=== PATIENT | female | born 1955 | race Caucasian/White ===

== ENCOUNTER 2024-07-11 01:42 | Emergency (ER) | payer MEDICAID, OTHER ==
[~2024-07-11] VITALS: Ht 154.9 cm; Wt 73.0 kg
[2024-07-11 02:12] VITALS: O2SAT 100
[2024-07-11 03:45] LABS: BASOPHILS % 0.5 % (0.0-2.0); EOSINOPHILS % 0.6 % (0.0-5.0); HEMATOCRIT. 40.4 % (36.0-48.0); HEMOGLOBIN. 13.9 g/dL (12.0-16.0); LYMPHOCYTES % 9.6 % (20.0-50.0); MEAN CORPUSCULAR HGB CONC 34.5 g/dL (31.0-37.0); MEAN CORPUSCULAR VOLUME 86.9 fL (81.0-99.0); MEAN PLATELET VOLUME 8.3 fl (7.4-10.4); MONOCYTES % 5.9 % (2.0-8.0); NEUTROPHILS % 83.4 % (40.0-76.0); PLATELET 191 x1000/uL (130-400); RED BLOOD CELL COUNT 4.64 mill/uL (4.2-5.4); RED CELL DISTRIBUTION WIDTH 13.9 % (11.6-14.6); WHITE BLOOD COUNT 9.5 x1000/uL (4.5-11.0)
[2024-07-11 03:55] LABS: CHLORIDE 106 mEq/L (98-107); POTASSIUM 3.5 mEq/L (3.5-5.1); SODIUM 139 mEq/L (136-145)
[2024-07-11 03:56] LABS: CARBON DIOXIDE 24 mEq/L (21-32)
[2024-07-11 03:57] LABS: CALCIUM 9.5 mg/dL (8.7-10.4)
[2024-07-11 04:01] LABS: CREATININE 0.9 mg/dL (0.6-1.0); GLUCOSE 121 mg/dL (70-105); UREA NITROGEN BLOOD 13 mg/dL (9-23)
[2024-07-11 04:02] LABS: TROPONIN I HIGH SENSITIVITY 25 ng/L (3.0-34)
[2024-07-11] MEDS ORDERED: NAPR220C61 MT (04:16)
[2024-07-11] MEDS ORDERED: BENZ100C86 MT (04:16)
[2024-07-11 04:30] VITALS: BP 147/84; PULSE 89; RESP 18; TEMP 37.16964; O2SAT 98
== END 2024-07-11 04:31 | disposition home or self-care (01) ==
LOC: ER 01:42
DX: J40 Bronchitis, not specified as acute or chronic (principal); I10 Essential (primary) hypertension
CPT/HCPCS: 36415; 71045; 80048; 84484; 85025; 93005; 99285